=== PATIENT | male | born 1990 | race Caucasian/White ===

== ENCOUNTER 2024-05-31 06:25 | Day surgery (SDC) | payer OTHER, SELFPAY ==
[2024-05-31] VITALS (10 sets, daily range): BP systolic 103–126; BP diastolic 64–80; BMI 28.5
--- NOTE | 2024-05-31 08:21 | HP.FOC2 ---
Focused History & Physical
Chief Complaint
HPI:
Chief Complaint: Left inguinal hernia
HPI / Indication for Planned Procedure: Patient is a 34-year-old male recently seen in outpatient surgical evaluation with a 6-month history or so of intermittent discomfort and swelling the left inguinal region. He has an awareness of the hernia
being present. Has been avoiding strenuous activity and exercise which has made the hernia less symptomatic. Visible swelling. No symptoms suggestive of intermittent incarceration or obstruction.
Relevant Past Medical History: Other (History of muscular dystrophy)
Relevant Social History: Negative
Relevant Family History: Negative
Relevant Past Surgical History: Positive for (With some teeth extraction)
Review of Systems
Review of Pertinent Systems: All Systems Negative
Medication
See Medication form for detailed medications: Yes
Medication List (including Herbals & OTC):
ascorbic acid (vitamin C) 1,000 mg tablet (Vitamin C) 1,000 mg PO DAILY 05/24/24
turmeric 400 mg capsule 400 mg PO DAILY 05/24/24
Medications Reviewed: Yes
Allergies and Reactions
Patient has Allergies: No
Noted Allergies and Reactions:
Allergy/AdvReac Type Severity Reaction Status Date / Time
No Known Allergies Allergy Unverified 05/24/24 15:20
Pertinent Physical Exam
All Other Systems: Negative
Head/Neck: Normal
Lungs: Normal
Heart: Normal
Abdomen: Other (Soft, reducible left inguinal hernia appreciated while standing. Reoccurs.)
Extremities: Normal
Neurological: Normal
Diagnosis / Assessment
34-year-old male presenting for scheduled operative correction symptomatic left inguinal hernia
Plan / Procedure
Robotic assisted laparoscopic repair left inguinal hernia mesh
Anesthesia/Sedation to be done by Anesthesia Provider: Yes
[2024-05-31] MEDS: TYLENOL 1000 MG PO (10:13)
[2024-05-31] MEDS: NORMOSOL-R/PLASMALYTE-A 1000 IV (10:13)
--- NOTE | 2024-05-31 10:49 | W.SUR.PREOP ---
Pre-Operative Surgical Note
-
I have examined this patient prior to the performance of the scheduled procedure.
The patient's condition is unchanged from the time of the current History and
Physical and the patient is able to undergo the scheduled procedure.
--- NOTE | 2024-05-31 12:42 | W.IMMPOSTOP ---
Addendum entered and electronically signed by Oneil Fregoso MD 05/31/24 12:50:
#[id number]
Original Note:
Surgical Immed Post Op Note
-
Primary Surgeon: Ildefonso
Assisting Surgeon: Annalise Dugan PA-C
Pre-op Diagnosis: Left inguinal hernia
Post-op Diagnosis: Left inguinal hernia, direct
Procedure Performed: Robotic assisted laparoscopic repair left inguinal hernia with mesh; 3D max large mid weight
Anesthesia Type: GETA +0.25% Marcaine
Specimen / Cultures: None
Estimated Blood Loss: 6 mL
Complications: None immediate
Operative Findings: Left direct inguinal hernia. Indirect normal. No lipoma. Plication of pseudosac with 2-0 Vicryl to Fortino's. 3D max large mid weight mesh repair secured with 2-0 Vicryl.
The assistance of Annalise Dugan PA-C was required due to the complexity of the procedure. During the procedure Annalise Dugan PA-C assisted with port placement, robotic instrumentation and suture material exchanges, and closure of the surgical incision
sites. I was present for the entirety of the operative procedure.
--- NOTE | 2024-05-31 14:25 | PTCARENOTE ---
Report passed onto Aracely at 1425. Will monitor patient.
[2024-05-31] MEDS: ROXICODONE 5 MG PO (15:06)
== END 2024-05-31 15:09 | disposition home or self-care (01) ==
LOC: SDS 06:25
PROVIDERS: ATTENDING PHYSICIAN Surgery
DX: K40.90 Unilateral inguinal hernia, without obstruction or gangrene, not specified as recurrent (principal)
CPT/HCPCS: 49650; C1781